=== PATIENT | male | born 1975 | race Caucasian/White ===

== ENCOUNTER 2020-08-11 05:34 | Emergency (ER) | payer BC, SELFPAY ==
[2020-08-11] VITALS (7 sets, daily range): BP systolic 116–134; BP diastolic 75–97; PULSE 58–99; RESP 15–18; TEMP 37; O2SAT 99–100
--- NOTE | 2020-08-11 07:05 | ED.DIZZY ---
HPI - Dizziness General Chief Complaint: Dizziness Stated Complaint: dizziness Time Seen by Provider: 08/11/20 07:05 Source: patient Mode of arrival: ambulatory Limitations: no limitations History of Present Illness HPI Narrative: Patient is a 44-year-old previously healthy male who presents for evaluation of dizziness. Patient states he awakened approximately 420 this morning to get ready for work when he felt acutely dizzy as if the room were spinning when he tried to sit up. Patient states that he was able to eat breakfast, drink water and walk around his house with some improvement in his symptoms but due to the dizziness sensation persisting he wanted to be seen in an emergency department. At the time of my assessment, patient states that his dizziness is currently resolved. He denies any headache, vision changes, chest pain, shortness of breath. No nausea or vomiting. Patient states he has a history of vertigo once prior 4 years ago and symptoms are very similar. Patient denies any syncope or loss of consciousness. No recent head trauma. No recent illnesses or fever. No recent sick contacts. Related Data Allergies Allergy/AdvReac Type Severity Reaction Status Date / Time No Known Allergies Allergy Verified 08/11/20 05:38 Review of Systems Review of Systems: Narrative: CONSTITUTIONAL: Denies fever, chills, or sweats. EYES: Denies visual changes ENT: Denies rhinorrhea, congestion, sore throat, or otalgia. CARDIOVASCULAR: Denies chest pain. RESPIRATORY: Denies cough or dyspnea. GASTROINTESTINAL: Denies abdominal pain, nausea, vomiting SKIN: Denies rash or itching. MUSCULOSKELETAL: Denies back pain, joint pain, or myalgia. NEUROLOGIC: Denies headache, numbness, or weakness. Reports dizziness has resolved. [facility] Past Medical History Medical History (Updated 08/11/20 @ 08:46 by Sakina Riddle MD) Vertigo Surgical History Surgical History (Updated 08/11/20 @ 07:42 by Sakina Riddle MD) No pertinent past surgical history Social History Social History (Updated 08/11/20 @ 07:42 by Sakina Riddle MD) Smoking status: Never smoker Alcohol intake: never Substance use: never Living arrangements: with family Gender identity (if verbalized by the patient): Male Exam Narrative: Exam Narrative: GENERAL: Awake, alert, conversant HEAD: Normocephalic, atraumatic. EYES: PERRLA and EOMI. ENT: Nares clear, no rhinorrhea or epistaxis. Mucous membranes moist. TMs are clear bilaterally without impaction or evidence of erythema, bulging. NECK: Supple. CHEST: No respiratory distress, breathing even and non labored HEART: Regular rate, sinus rhythm ABDOMEN:Non distended, non tender EXTREMITIES: Normal range of motion. No edema. SKIN: Warm, dry, no rash. NEURO:No focal deficits. Alert and oriented x3. Finger to nose intact bilaterally. EOMs intact without nystagmus. No facial droop/asymmetry noted bilaterally. Grimace intact. Intact sensation in face. Hearing intact bilaterally. Shoulder shrug intact. Strength 5/5 bilateral upper extremities. Strength 5/5 bilateral lower extremities. Reflexes 2+ patellar. Heel to stevens intact bilaterally. Ambulatory with a narrow-base steady gait, tandem gait normal, no ataxia. Course Vital Signs Vital signs: Vital Signs Temperature 37.0 C 08/11/20 05:37 Pulse Rate 58 L 08/11/20 05:37 Respiratory Rate 16 08/11/20 05:37 Blood Pressure 134/80 08/11/20 05:37 Pulse Oximetry 100 08/11/20 05:37 Temperature 37.0 C 08/11/20 05:37 Pulse Rate 58 L 08/11/20 07:16 Respiratory Rate 18 08/11/20 07:16 Blood Pressure 120/75 08/11/20 07:16 Pulse Oximetry 100 08/11/20 05:37 MDM - Dizziness MDM Narrative Medical decision making narrative: The patient was evaluated for dizziness. Based on neurological assessment and clinical symptoms, patient's vertigo is felt to be likely peripheral in origin. There is no diplopia, dysarthria or dysphagia. Patient's
--- NOTE | 2020-08-11 07:24 | ECG_ITS ---
Measurements Intervals [place] Rate: 64 P: 44 [place]: 160 QRS: -51 QRSD: 106 T: 62 QT: 411 QTc: 424 Interpretive Statements SINUS RHYTHM LEFT AXIS DEVIATION DELAYED PRECORDIAL R/S TRANSITION BASELINE ARTIFACT- V1 BORDERLINE ECG Electronically Signed On 08-11-2020 11:14:25 CDT by Abimael Fatima D.O.
--- NOTE | 2020-08-11 07:45 | PC.NURSE ---
0740 - Patient ambulated to restroom and back to ER stretcher with no complaint of dizziness.
[2020-08-11 08:07] LABS: Basophils Percent Auto 0.2 % (0.2-1.2); Eosinophils Absolute Auto 0.1 K/mm3 (0-0.3); Eosinophils Percent Auto 1.1 % (0-4.4); Hematocrit 44.5 % (42.0-52.0); Hemoglobin 15.2 g/dL (14.0-18.0); Immature Granulocyte Absolute 0.02 K/mm3 (0.00-0.031); Immature Granulocyte Percent A 0.4 % (0-0.5); Lymphocytes Absolute Auto 1.46 K/mm3 (0.9-3.2); Lymphocytes Percent Auto 31.7 % (18.3-44.2); Mean Corpuscular HGB Conc 34.2 g/dl (32-36); Mean Corpuscular Hemoglobin 28.2 pg (26-34); Mean Corpuscular Volume 82.6 fl (80-100); Mean Platelet Volume 11.6 fl (7.4-10.4); Monocytes Absolute Auto 0.4 K/mm3 (0.1-0.6); Monocytes Percent Auto 8.7 % (2.6-8.5); Neutrophils Absolute Auto 2.7 K/mm3 (1.3-6.7); Neutrophils Percent Auto 57.9 % (45.5-73.1); Platelet Count Result 193 k/mm3 (150-375); Red Blood Count 5.39 M/mm3 (4.6-6.20); Red Cell Distribution Width 12.3 % (11.5-14.5); White Blood Count 4.6 K/mm3 (4.5-10.0)
[2020-08-11] MEDS: MECLIZINE HCL 25 MG TABLET PO (08:22)
[2020-08-11] MEDS: SODIUM CHLORIDE 0.9% IV 500 ML 999 ML IV CONT (08:22)
[2020-08-11 08:39] LABS: Anion Gap 3 mmol/L (8-16); Blood Urea Nitrogen 17 mg/dL (9-20); Calcium 8.7 mg/dL (8.4-10.2); Carbon Dioxide 30 mmol/L (22-30); Chloride 105 mmol/L (98-107); Estimated CRCL calculation 89 ml/min; Estimated Glomerular Filt Rate > 60; Glucose 99 mg/dL (75-110); Potassium 4.3 mmol/L (3.4-5.0); Sodium 138 mmol/L (137-145)
--- NOTE | 2020-08-29 14:05 | PC.NURSE ---
LATE ENTRY This note is being entered to document information to the patient's record. The following information was omitted on [], by [Sylwia Crum RN]. NS stop time of 1914 am. 500ml infused
--- NOTE | 2020-09-12 07:47 | PC.NURSE ---
LATE ENTRY This note is being entered to document information to the patient's record. The following information was omitted on [08/11/2020], by [Sylwia Crum RN]. Normal [place] stop time 0953 on 08/11/2020, patient received full infusion, zero volume left in container. Patient received 1000 mL NS.
== END 2020-08-11 09:10 | disposition home or self-care (01) ==
PROVIDERS: Emergency Provider Emergency Medicine
DX: H81.10 Benign paroxysmal vertigo, unspecified ear (principal); R94.31 Abnormal electrocardiogram [ECG] [EKG]
CPT/HCPCS: 36415; 80048; 85025; 93005; 96360; 99283; A9270; J7040